=== PATIENT | female | born 1935 | race Caucasian/White ===

== ENCOUNTER 2019-08-26 18:59 | Emergency (ER) | payer MEDICARE, OTHER ==
[~2019-08-26] VITALS: Ht 152.4 cm; Wt 67.1 kg
[2019-08-26 19:10] VITALS: BP 169/87
--- NOTE | 2019-08-26 21:09 | NUR ---
Patient discharged to home in stable condition. Written and verbal after care instructions given. Patient verbalizes understanding of instruction. ambulatory with a steady gait noted. pt daughter at bedside to take pt home.
== END 2019-08-26 21:10 | disposition home or self-care (01) ==
LOC: ER 19:02
DX: S60.222A Contusion of left hand, initial encounter (principal); S00.33XA Contusion of nose, initial encounter; S00.531A Contusion of lip, initial encounter; S50.12XA Contusion of left forearm, initial encounter; I49.9 Cardiac arrhythmia, unspecified; V49.59XA Passenger injured in collision with other motor vehicles in traffic accident, initial encounter; Y93.89 Activity, other specified; Y92.488 Other paved roadways as the place of occurrence of the external cause; Y99.8 Other external cause status
CPT/HCPCS: 73090-TC; 73130-TC